=== PATIENT | female | born 1970 | race Asian ===

== ENCOUNTER 2019-12-25 20:17 | Emergency (ER) | payer OTHER ==
[2019-12-25 20:45] VITALS: BP 140/92; PULSE 110; TEMP 98; BMI 22.6
[2019-12-25] MEDS ORDERED: IBUPROFEN 400 MG TABLET (FP) PO ONE (21:21)
[2019-12-25] MEDS ORDERED: METHOCARBAMOL 500 MG TABLET PO ONE (21:21)
[2019-12-25] MEDS ORDERED: LIDOCAINE 5% TOPICAL PATCH TP ONE (21:21)
== END 2019-12-25 22:16 | disposition home or self-care (01) ==
LOC: JER 20:17
DX: M54.2 Cervicalgia (principal); V89.2XXA Person injured in unspecified motor-vehicle accident, traffic, initial encounter
CPT/HCPCS: 72050-TC-FY; 99283-25